=== PATIENT | male | born 1950 | race Caucasian/White ===

== ENCOUNTER → 2017-02-11 | Outpatient (CLI) | payer OTHER | LOC: COL.RAD 07:17 | DX: N28.89 Other specified disorders of kidney and ureter (principal); D71 Functional disorders of polymorphonuclear neutrophils; K44.9 Diaphragmatic hernia without obstruction or gangrene; M47.817 Spondylosis without myelopathy or radiculopathy, lumbosacral region; I25.10 Atherosclerotic heart disease of native coronary artery without angina pectoris | CPT/HCPCS: Q9967 ==

== ENCOUNTER 2017-11-25 06:58 | Day surgery (SDC) | payer OTHER ==
[2017-11-25] VITALS (7 sets, daily range): BP systolic 103–149; BP diastolic 66–99; PULSE 66–94; TEMP 97.8
[~2017-11-25] VITALS: Ht 182.9 cm; Wt 105.4 kg
[2017-11-25 07:53] LABS: POTASSIUM 3.8 mmol/L (3.4-5.0)
[2017-11-25 08:06] LABS: INR 1.3 (0.8-3.0); PROTHROMBIN TIME 14.7 SECONDS (9.7-12.8)
[2017-11-25] MEDS ORDERED: MULTIPLE VITAMI1 CAP PO (08:17)
[2017-11-25] MEDS ORDERED: FOLIC ACID 40400 MCG PO (08:17)
[2017-11-25] MEDS ORDERED: ASPIRIN 81M81 MG/TA2 PO (08:18)
[2017-11-25] MEDS ORDERED: LIPITOR 80MG80 MG PO (08:19)
[2017-11-25] MEDS ORDERED: OMEGA-3 FISH1000 MG PO (08:19)
[2017-11-25] MEDS ORDERED: MULTAQ400 MG PO ×2 (08:20→09:43)
[2017-11-25] MEDS ORDERED: ELIQUIS 5MG PO (08:21)
[2017-11-25] MEDS ORDERED: PROLENSA OP (08:22)
[2017-11-25 08:27] LABS: THYROID STIMULATING HORMONE 2.45 uIU/mL (0.465-4.680)
== END 2017-11-25 10:40 | disposition home or self-care (01) ==
LOC: COL.CAR 06:58
PROVIDERS: Internal Medicine Cardiovascular Disease
DX: I48.0 Paroxysmal atrial fibrillation (principal); E78.5 Hyperlipidemia, unspecified; Z79.82 Long term (current) use of aspirin
CPT/HCPCS: J2250; J3010; J7030

== ENCOUNTER 2017-12-14 05:12 | Inpatient (IN) | payer OTHER, MEDICARE ==
[~2017-12-14] VITALS: Ht 182.9 cm; Wt 104.0 kg
[~2017-12-14 05:12] MED LIST: ASPIRIN 81M81 MG/TA2 PO; ELIQUIS 5MG PO; FOLIC ACID 40400 MCG PO; LIPITOR 80MG80 MG PO; MULTAQ400 MG PO; MULTIPLE VITAMI1 CAP PO; OMEGA-3 FISH1000 MG PO; PROLENSA OP
[2017-12-14 08:36] VITALS: BP 134/64; PULSE 51; TEMP 97.7
[2017-12-14] MEDS ORDERED: LIPITOR 40MG TA40 MG PO (09:14)
[2017-12-14] MEDS ORDERED: FOLIC ACID 11 MG/TA1 PO (09:15)
[2017-12-14] MEDS ORDERED: BEE-ZEE1 TAB PO (09:18)
[2017-12-14] MEDS ORDERED: TOPROL XL 25MG25 MG PO (09:18)
[2017-12-14 09:37] LABS: HEMATOCRIT 44.9 % (42.0-52.0); HEMOGLOBIN 15.6 g/dl (13.5-18.0); MEAN CELL VOLUME 94 fl (80.0-100.0); MEAN CORPUSCULAR HEMOGLOBIN 33 pg (27.0-31.0); MEAN CORPUSCULAR HGB CONC 35 g/dl (33.0-37.0); MEAN PLATELET VOLUME 9.9 fl (7.4-10.4); PLATELET COUNT 218 K/mm3 (130-400); REDCELL DISTRIBUTION WIDTH-CV 12.4 % (11.5-14.5)
[2017-12-14 09:43] LABS: INR 1.2 (0.8-3.0); PROTHROMBIN TIME 13.7 SECONDS (9.7-12.8)
[2017-12-14 09:49] LABS: ALBUMIN 3.9 gm/dL (3.5-5.0); CALCIUM 9.2 mg/dL (8.4-10.2); CREATININE, serum 0.98 mg/dL (0.66-1.25); MAGNESIUM 2.1 mg/dL (1.6-2.3); POTASSIUM 4.3 mmol/L (3.4-5.0); TOTAL PROTEIN 7.1 gm/dL (6.4-8.2)
[2017-12-14 11:44] VITALS: BP 127/69; PULSE 53; TEMP 98.5
[2017-12-14 15:59] VITALS: BP 150/62; PULSE 47; TEMP 98.4
[2017-12-14 19:18] VITALS: BP 138/57; PULSE 50; TEMP 98.3
[2017-12-15] VITALS (7 sets, daily range): BP systolic 97–156; BP diastolic 53–78; PULSE 44–65; TEMP 97.7–98.6
[2017-12-16 04:12] VITALS: BP 172/74; PULSE 49; TEMP 97.8
[2017-12-16 08:14] VITALS: BP 126/87; PULSE 47; TEMP 98.4
[2017-12-16 11:47] VITALS: BP 131/63; PULSE 45; TEMP 98.3
[2017-12-16] MEDS ORDERED: BETAPACE 80MG80 MG PO (12:00)
== END 2017-12-16 12:30 | disposition home or self-care (01) | DRG 310 ==
LOC: MEDICAL 05:12
PROVIDERS: Internal Medicine Cardiovascular Disease
DX: I48.0 Paroxysmal atrial fibrillation (principal); Z79.02 Long term (current) use of antithrombotics/antiplatelets